=== PATIENT | female | born 1980 | race African-American/Black ===

== ENCOUNTER 2022-07-20 18:09 | Emergency (ER) | payer OTHER, SELFPAY ==
[2022-07-20 18:15] VITALS: BP 127/78; PULSE 96; RESP 16; TEMP 36.8; O2SAT 100
[2022-07-20 18:20] VITALS: BP 127/78; PULSE 96; RESP 16; TEMP 36.8; O2SAT 100
--- NOTE | 2022-07-20 18:22 | ED.URI ---
HPI - URI/Sore Throat General Chief Complaint: Upper Respiratory Infection Stated Complaint: uri Time Seen by Provider: 07/20/22 18:15 Source: patient Mode of arrival: ambulatory Limitations: no limitations History of Present Illness HPI Narrative: Patient is a 41-year-old female that presents with sinus congestion, runny nose, sinus pressure, sinus pain, headache, ear fullness, itchy throat, cough for 1 week. Patient states she has tried Sudafed and Mucinex along with taking her daily Flonase and Zyrtec with no relief. Denies any fever, chills, shortness of breath. Reports son is having similar symptoms. Reports seasonal allergies. Related Data Home Medications Medication Instructions Recorded Confirmed cetirizine 10 mg capsule (Zyrtec) 10 mg PO DAILY PRN Allergy Symptoms 07/20/22 07/20/22 fluticasone propionate 50 intranasal 07/20/22 mcg/actuation nasal spray,suspension Allergies Allergy/AdvReac Type Severity Reaction Status Date / Time amoxicillin Allergy Mild RASH Verified 05/10/13 16:19 metronidazole Allergy Mild LIP Verified 05/10/13 16:19 SWELLING tramadol Allergy Unknown Hives / Verified 05/04/16 13:42 Red Face METRONIDAZOLE HCL Allergy Mild LIP Uncoded 05/10/13 16:19 SWELLING Review of Systems Review of Systems: All systems reviewed & are unremarkable except as noted in HPI and below Constitutional: Constitutional: Denies body ache(s), Denies fever(s), Denies malaise and Denies weakness Eyes: Eyes: Denies loss of vision ENT: Denies otalgia, Reports facial pain, Reports headache(s), Reports nasal congestion, Reports nasal discharge, Reports sinus pain and Reports sore throat Cardiovascular: Cardiovascular: Denies chest pain, Denies irregular heart rhythm and Denies dyspnea Respiratory: Respiratory: Reports cough and Denies dyspnea Gastrointestinal: Gastrointestinal: Denies abdominal pain, Denies melena, Denies hematochezia, Denies diarrhea, Denies nausea and Denies vomiting Musculoskeletal: Musculoskeletal: Denies back pain, Denies myalgias and Denies arthralgias Integumentary/Breasts: Skin/Breast: Denies pruritus and Denies rash Neurologic: Denies headache(s), Denies loss of vision and Denies weakness Psychiatric: Psychiatric: Reports no additional psychiatric complaints PMFSH Comments At time of signature, agree with nursing past medical, surgical, social and family history. There is no relevant family history pertinent to the presenting complaint. Exam Const: General: cooperative, healthy appearing, comfortable, no acute distress and well nourished Nutritional Appearance: well nourished Orientation/consciousness: patient oriented x3 Limitations: no limitations HENMT: Head: normal to inspection, normocephalic and atraumatic Ears: external ears normal and TM's normal bilaterally Face/Nose/Sinus: Normal external nose present, Normal nares present, No nasal polyps present, Abnormal mucous membranes and turbinates present erythematous bilateral and diffuse, Nasal discharge present clear bilateral, normal facial exam, face symmetric and Facial tenderness on exam of face and sinuses Face and sinus: normal facial exam, sinuses nontender and face symmetric Mouth: Yes Normal oral and palatal mucosa present, Yes lip normal and Yes moist mucous membranes Teeth and gingiva: dentition normal Throat: posterior oropharynx normal, tonsils normal and uvula midline Eyes: General: appearance normal, both eyes and all related structures Alignment and Position: alignment normal and position normal Periorbital: periorbital findings normal Eyelids: eyelids normal Pupils: Equal, round and reactive pupils present Neck: Neck: normal visual inspection, full ROM and supple Chest: Chest palpation & inspection: normal inspection of the chest and normal palpation of entire chest wall Resp: Effort & Inspection: normal respiratory effort and able to speak in complete sentences Auscultation: clear t
== END 2022-07-20 18:31 | disposition home or self-care (01) ==
PROVIDERS: Emergency Provider Nurse Practitioner Family
DX: J32.9 Chronic sinusitis, unspecified (principal)
CPT/HCPCS: 99213; G0463

== ENCOUNTER 2023-07-09 17:52 | Emergency (ER) | payer OTHER, SELFPAY ==
--- NOTE | 2023-07-09 17:56 | ED.DENTAL ---
HPI - Dental/Oral General Chief complaint: Upper Respiratory Infection Stated complaint: left side face swollen Time Seen by Provider: 07/09/23 17:55 Source: patient Mode of arrival: ambulatory Limitations: no limitations History of Present Illness HPI Narrative: Jaziel is a 42-year-old female patient presenting to the clinic today with complaints of sinus drainage and left-sided facial swelling. She reports that the sinus drainage is been going on for about 1 week. States the drainage is clear. Developed swelling over her left lateral face yesterday. States this happens to her every year when she gets a sinus infection. Denies any fever, chills, or body aches. Denies sore throat or dental pain. Related Data Home Medications Medication Instructions Recorded Confirmed cetirizine 10 mg capsule (Zyrtec) 10 mg PO DAILY PRN Allergy Symptoms 07/20/22 07/09/23 fluticasone propionate 50 50 mcg intranasal DIRECTED 07/20/22 07/09/23 mcg/actuation nasal spray,suspension Allergies Allergy/AdvReac Type Severity Reaction Status Date / Time amoxicillin Allergy Mild RASH Verified 05/10/13 16:19 metronidazole Allergy Mild LIP Verified 05/10/13 16:19 SWELLING tramadol Allergy Unknown Hives / Verified 05/04/16 13:42 Red Face METRONIDAZOLE HCL Allergy Mild LIP Uncoded 05/10/13 16:19 SWELLING Review of Systems Review of Systems: Pertinent positives per HPI. Patient denies any fever, chills, rash, headache, visual changes, dizziness, cough, shortness of breath, chest pain, palpitations, nausea, vomiting, diarrhea, constipation, abdominal pain, or any urinary issues. PMFSH Comments At the time of my signature, I reviewed and agree with the nursing past medical, surgical, social, and family history. There is no relevant family history pertinent to the patient complaint. Exam Narrative: General: Well-developed, morbidly obese, in no apparent distress Head: Normocephalic, atraumatic Eyes: Pupils equally round and reactive to light bilaterally, EOM intact, sclera and conjunctive clear, no discharge, lids normal Ears: TMs intact and clear, ear canals clear, no drainage, grossly hearing normal. Nose: Nares patent, clear discharge, no inflammation, no sinus tenderness. Mouth: Oral pharynx without lesions or masses, good dentition, MMM. Neck: Supple, trachea midline, left parotid gland swelling, area is very tender to palpation, no erythema felt or redness visualized, no enlargement of anterior or posterior cervical nodes, no thyroid masses or goiter palpable. Cardio: Regular rate and rhythm, s1 and s2 normal, no murmur appreciated. Resp: Clear to auscultation bilaterally, no rhonchi, rales, wheezing or rubs Course Course Emergency Course: Portions of this record may have been created with voice recognition software. Level of Care: Express Care Visit Vital Signs Vital signs: Vital signs reviewed MDM - Dental/Oral MDM Narrative Medical decision making narrative: At the time of visit patient is resting comfortably on the exam table. Patient appears to be nontoxic. Labs: Strep test was negative in the clinic today. Plan: I suspect patient has viral parotitis but cannot rule out biliary gland duct obstruction/bacterial parotitis/sialadenitis. Patient would like to be transfer to the ER for further evaluation. Patient would like to go to [facility] in [place], [place]. Spoke with Mariela-charge nurse at [facility] and reports was given for continuity of care. Dr. Bains accepts patient. Supportive measures were discussed with the patient and they voiced understanding discharge instructions and agrees to treatment plan. Return precautions reviewed Differential Diagnosis Differential diagnosis: Likely gingival abscess, dental caries, toothache, dental abscess and other (Strep pharyngitis, viral parotitis, blocked salivary biliary duct/obstruction/sialadenitis, otitis media ) Discharge [facility]
[2023-07-09 18:01] VITALS: BP 121/74; PULSE 85; RESP 16; TEMP 36.7; O2SAT 100
== END 2023-07-09 18:38 | disposition short-term general hospital (02) ==
PROVIDERS: Emergency Provider Nurse Practitioner Family
DX: K11.21 Acute sialoadenitis (principal)
CPT/HCPCS: 87880; 99212; G0463